=== PATIENT | female | born 1950 | race Caucasian/White ===

== ENCOUNTER 2021-10-04 08:18 | Day surgery (SDC) | payer OTHER, MEDICARE ==
[2021-10-02 15:03] VITALS: BMI 23.2
[2021-10-04 10:07] VITALS: TEMP 98
[2021-10-04 10:15] VITALS: BP 118/68; PULSE 65
== END 2021-10-04 10:27 | disposition home or self-care (01) ==
LOC: FASU-ENDO 08:18
PROVIDERS: ATTEND Internal Medicine Gastroenterology
PROC: 0DJD8ZZ Inspection of Lower Intestinal Tract, Via Natural or Artificial Opening Endoscopic (ICD-10-PCS; principal; 2021-10-04 09:35)
DX: Z86.010 Personal history of colon polyps (principal); Z80.0 Family history of malignant neoplasm of digestive organs; Z83.71 Family history of colonic polyps; K64.0 First degree hemorrhoids